=== PATIENT | male | born 1945 | race Caucasian/White ===

== ENCOUNTER 2021-08-06 15:49 | Inpatient (IN) | payer OTHER, SELFPAY ==
[~2021-08-06] VITALS: Ht 175.3 cm; Wt 61.2 kg
[2021-08-06 15:50] VITALS: BP_SYST 102
[2021-08-06] MEDS ORDERED: NACL 0.9% 1,000 ML IV SCH (16:15)
[2021-08-06 17:42] LABS: MEAN CORPUSCULAR HEMOGLOBIN 23 pg (27-31); MEAN CORPUSCULAR HGB CONC 32 % (32-36); MEAN CORPUSCULAR VOLUME 72 fL (79.0-98.0); PLATELET COUNT (AUTO) 107 K/uL (130-430); RED BLOOD CELL COUNT(AUTO) 2.95 MIL/uL (4.2-6.2); RED CELL DISTRIBUTION WIDTH 18.3 % (9.0-15.0)
[2021-08-06 17:45] LABS: ANION GAP 8 (5-15); CALCIUM 7.6 mg/dL (8.4-11.0); CHLORIDE 103 mmol/L (98-107); CREATININE 1.61 mg/dL (0.55-1.30); GLUCOSE 101 mg/dL (70-99); POTASSIUM 3.8 mmol/L (3.5-5.1); SODIUM SERUM 134 mmol/L (136-145); UREA NITROGEN, BLOOD 27 mg/dL (8-21)
[2021-08-06 17:53] LABS: HEMATOCRIT 21.2 % (36-54); HEMOGLOBIN 6.9 g/dL (14.0-18.0); WHITE BLOOD COUNT (AUTO) 0.9 K/uL (4.8-10.8)
[2021-08-06 17:54] LABS: ALANINE AMINOTRANSFERASE 18 U/L (12-78); ASPARTATE AMINOTRANSFERASE 33 U/L (10-37); TOTAL BILIRUBIN 0.7 mg/dL (0.0-1.0)
[2021-08-06 18:10] LABS: INR 1.2 (0.80-1.20); PROTHROMBIN TIME 12.7 SECS (9.5-12.5)
[2021-08-06] MEDS ORDERED: guaiFENesin/DEXTROMETHORPHAN 10 ML UDC PO PRN (18:45)
[2021-08-06] MEDS ORDERED: ZOLPIDEM TARTRATE 5 MG TABLET PO PRN (18:45)
[2021-08-06] MEDS ORDERED: ONDANSETRON HCL 4 MG/2 ML VIAL IVP PRN (18:45)
[2021-08-06] MEDS ORDERED: DOCUSATE SODIUM 100 MG/10 ML UDC PO PRN (18:45)
[2021-08-06] MEDS ORDERED: ACETAMINOPHEN 500 MG TABLET PO PRN (18:45)
[2021-08-06] MEDS ORDERED: MORPHINE 2 MG/ML INJ. SYRINGE IVP PRN (18:45)
[2021-08-06] MEDS ORDERED: HYDROcodone/ACETAMIN 7.5-325 MG TAB PO PRN (18:45)
[2021-08-06] MEDS: NACL 0.9% 1,000 ML IV SCH (18:45)
[2021-08-06 19:56] LABS: FREE T4 (FREE THYROXINE) 1.2 ng/dl (0.8-1.5); PHOSPHORUS 2.9 mg/dL (2.7-4.5); THYROID STIMULATING HORMONE 1.13 uIu/mL (0.36-3.74)
[2021-08-06] MEDS ORDERED: PANTOPRAZOLE SODIUM 80 MG in NS 100 ML IVP ONE (20:00)
[2021-08-06] MEDS ORDERED: ALBUMIN HUMAN 5% 500 ML IV ONE (20:00)
[2021-08-06] MEDS: PANTOPRAZOLE SODIUM 40 MG in NS 50 ML IV SCH (20:03)
[2021-08-06] MEDS ORDERED: PANTOPRAZOLE SODIUM 40 MG/VIAL (PROTONIX) ONE ×2 (20:12→20:14)
[2021-08-07 00:49] VITALS: BP_SYST 111
[2021-08-07] MEDS ORDERED: PANTOPRAZOLE SODIUM 40 MG/VIAL (PROTONIX) ONE ×2 (00:52→05:16)
[2021-08-07] MEDS: PANTOPRAZOLE SODIUM 40 MG in NS 50 ML IV SCH ×2 (01:08→05:22)
[2021-08-07 04:13] VITALS: BP_SYST 107
[2021-08-07 07:44] LABS: BASOPHILS % (AUTO) 1.9 % (0.0-2.0); EOSINOPHILS % (AUTO) 0.2 % (0.0-4.0); HEMATOCRIT 28.1 % (36-54); HEMOGLOBIN 9.2 g/dL (14.0-18.0); LYMPHOCYTES # (AUTO) 0.3 K/uL (1.0-5.5); LYMPHOCYTES % (AUTO) 25.6 % (20.5-51.5); MEAN CORPUSCULAR HEMOGLOBIN 24 pg (27-31); MEAN CORPUSCULAR HGB CONC 33 % (32-36); MEAN CORPUSCULAR VOLUME 73 fL (79.0-98.0); MONOCYTES # (AUTO) 0.2 K/uL (0.0-1.0); MONOCYTES % (AUTO) 19.8 % (1.7-9.3); NEUTROPHILS % (AUTO) 52.5 % (40.0-70.0); PLATELET COUNT (AUTO) 107 K/uL (130-430); RED BLOOD CELL COUNT(AUTO) 3.88 MIL/uL (4.2-6.2); RED CELL DISTRIBUTION WIDTH 18.1 % (9.0-15.0)
[2021-08-07 08:00] VITALS: BP_SYST 135
[2021-08-07 08:17] LABS: WHITE BLOOD COUNT (AUTO) 1.1 K/uL (4.8-10.8)
[2021-08-07 08:18] LABS: NEUTROPHILS # (AUTO) 0.6 K/uL (1.8-7.7)
[2021-08-07] MEDS ORDERED: POTASSIUM CHLORIDE 20 MEQ TAB.PRT.SR PO PRN (09:00)
[2021-08-07 09:16] LABS: ANION GAP 12 (5-15); CHLORIDE 101 mmol/L (98-107); GLUCOSE 88 mg/dL (70-99); POTASSIUM 3.7 mmol/L (3.5-5.1); SODIUM SERUM 134 mmol/L (136-145); UREA NITROGEN, BLOOD 24 mg/dL (8-21)
[2021-08-07] MEDS: PANTOPRAZOLE SODIUM 40 MG TAB PO SCH (09:19)
[2021-08-07] MEDS: NACL 0.9% 1,000 ML IV SCH (11:25)
[2021-08-07 12:00] VITALS: BP_SYST 106
[2021-08-07 18:46] VITALS: BP_SYST 106
[2021-08-07 20:00] VITALS: BP_SYST 145
[2021-08-08 00:01] VITALS: BP_SYST 135
[2021-08-08] MEDS: NACL 0.9% 1,000 ML IV SCH (03:43)
[2021-08-08 07:33] LABS: BASOPHILS % (AUTO) 1.4 % (0.0-2.0); EOSINOPHILS % (AUTO) 0.1 % (0.0-4.0); HEMATOCRIT 29.6 % (36-54); HEMOGLOBIN 9.6 g/dL (14.0-18.0); LYMPHOCYTES # (AUTO) 0.4 K/uL (1.0-5.5); LYMPHOCYTES % (AUTO) 21.1 % (20.5-51.5); MEAN CORPUSCULAR HEMOGLOBIN 24 pg (27-31); MEAN CORPUSCULAR HGB CONC 33 % (32-36); MEAN CORPUSCULAR VOLUME 72 fL (79.0-98.0); MONOCYTES # (AUTO) 0.4 K/uL (0.0-1.0); MONOCYTES % (AUTO) 23.1 % (1.7-9.3); NEUTROPHILS % (AUTO) 54.3 % (40.0-70.0); PLATELET COUNT (AUTO) 111 K/uL (130-430); RED CELL DISTRIBUTION WIDTH 18.3 % (9.0-15.0)
[2021-08-08 08:29] VITALS: BP_SYST 123
[2021-08-08 08:45] LABS: WHITE BLOOD COUNT (AUTO) 1.9 K/uL (4.8-10.8)
[2021-08-08 09:00] LABS: ANION GAP 12 (5-15); CALCIUM 7.8 mg/dL (8.4-11.0); CHLORIDE 100 mmol/L (98-107); CREATININE 1.84 mg/dL (0.55-1.30); GLUCOSE 80 mg/dL (70-99); SODIUM SERUM 132 mmol/L (136-145); UREA NITROGEN, BLOOD 19 mg/dL (8-21)
[2021-08-08] MEDS: PANTOPRAZOLE SODIUM 40 MG TAB PO SCH (09:06)
[2021-08-08] MEDS ORDERED: FERR-69 PO (12:28)
[2021-08-08] MEDS ORDERED: PANTOPRAZOLE SODIUM 40 MG TAB PO SCH (12:45)
[2021-08-08 13:16] VITALS: BP_SYST 96
[2021-08-08 14:38] VITALS: BP_SYST 95
== END 2021-08-08 15:00 | disposition home health service (06) | DRG 374 ==
LOC: SED 15:49 → STU 18:31
PROVIDERS: ADMIT Family Medicine; ATTEND Family Medicine
PROC: 30233N1 Transfusion of Nonautologous Red Blood Cells into Peripheral Vein, Percutaneous Approach (ICD-10-PCS; principal; 2021-08-06)
DX: C19 Malignant neoplasm of rectosigmoid junction (principal); E43 Unspecified severe protein-calorie malnutrition; N17.0 Acute kidney failure with tubular necrosis; D61.818 Other pancytopenia; E87.1 Hypo-osmolality and hyponatremia; C22.8 Malignant neoplasm of liver, primary, unspecified as to type; C16.9 Malignant neoplasm of stomach, unspecified; Z68.1 Body mass index [BMI] 19.9 or less, adult; C61 Malignant neoplasm of prostate; Z20.822 Contact with and (suspected) exposure to COVID-19; I48.91 Unspecified atrial fibrillation; D50.0 Iron deficiency anemia secondary to blood loss (chronic); Z92.21 Personal history of antineoplastic chemotherapy
CPT/HCPCS: 36415; 36430; 71045; 80048; 80053; 80061; 82150; 83036; 83051; 83605; 83690; 83735; 83880; 84100; 84439; 84443; 84484; 85014; 85025; 85048; 85049-TC; 85576; 85610-TC; 85730-TC; 86886; 86900; 86901; 86920; 93005; 96365; 96375; 97116-GP; 99285; C9113; G0378; P9021; P9041